=== PATIENT | male | born 1945 | race Caucasian/White ===

== ENCOUNTER 2022-04-14 05:45 | Day surgery (SDC) | payer BC ==
[~2022-04-14] VITALS: Ht 175.3 cm; Wt 79.9 kg
[2022-04-14] MEDS ORDERED: CEFAZOLIN SOD 1 GM/ ISO 50 ML PREMIX IV ONE (07:00)
[2022-04-14] MEDS ORDERED: ROCURONIUM BROMIDE 10 MG/ML (ZEMURON) IV ONE (07:40)
[2022-04-14] MEDS ORDERED: BUPIVACAINE /PF 0.25% 30 ML VIAL INJ ONE (07:40)
[2022-04-14] MEDS ORDERED: NS IRRIG SOLN 1000 ML IR ONE (07:40)
[2022-04-14] MEDS ORDERED: MIDAZOLAM HCL 5 MG/5 ML VIAL IVP ONE (07:40)
[2022-04-14] MEDS ORDERED: KETOROLAC TROMETHAMINE 30 MG VIAL IVP ONE (07:40)
[2022-04-14] MEDS ORDERED: ONDANSETRON HCL 4 MG/2 ML VIAL IVP ONE (07:40)
[2022-04-14] MEDS ORDERED: NS 100 ML BAG IV ONE (07:40)
[2022-04-14] MEDS ORDERED: PROPOFOL 200MG/ 20ML VIAL (DIPRIVAN) IV ONE (07:40)
[2022-04-14] MEDS ORDERED: DESFLURANE 15 MIN GAS INH ONE (07:40)
[2022-04-14] MEDS ORDERED: DEXAMETHASONE SOD PHOSPHATE 4 MG/ML VIAL IVP ONE (07:40)
[2022-04-14] MEDS ORDERED: fentaNYL CITRATE/PF 100 MCG/2 ML AMP IVP ONE (07:40)
[2022-04-14] MEDS ORDERED: LR 1,000 ML IV.SOLN IV ONE (07:40)
[2022-04-14] MEDS ORDERED: LIDOCAINE 2%, 20 ML MDV INJ ONE (07:40)
[2022-04-14] MEDS ORDERED: SUGAMMADEX SODIUM 200 MG/2 ML VIAL IV ONE (07:40)
[2022-04-14] MEDS ORDERED: CEFAZOLIN 2 GM IVPB PREMIX 50 ML IV ONE (07:40)
[2022-04-14] MEDS ORDERED: CEFAZOLIN 1 GM IVPB PREMIX 50 ML IV ONE (07:41)
[2022-04-14] MEDS ORDERED: BUPIVACAINE LIPOSOME/PF 266 MG/20 ML VIAL INFIL ONE (07:45)
[2022-04-14] MEDS ORDERED: MEPERIDINE HCL/PF 25 MG/ML DISP.SYRIN IVP PRN (08:30)
[2022-04-14] MEDS ORDERED: LR 1,000 ML IV SCH (08:30)
[2022-04-14] MEDS ORDERED: METOCLOPRAMIDE HCL 10 MG/2 ML VIAL IVP PRN (08:30)
[2022-04-14] MEDS ORDERED: HYDROmorphone 1 MG/ML INJ. CARTRIDGE IVP PRN ×2 (08:30→09:30)
[2022-04-14] MEDS ORDERED: ACETAMINOPHEN I.V. 1000 MG 100 ML IV ONE (08:36)
[2022-04-14] MEDS ORDERED: HYDROcodone/ACETAMIN 5-325 MG TAB (NORCO/ VICODIN) PO PRN ×2 (09:30)
[2022-04-14] MEDS ORDERED: ACETAMINOPHEN 325 MG TABLET PO PRN ×3 (09:30→12:30)
[2022-04-14] MEDS ORDERED: D5/0.45 NS 1,000 ML IV SCH (09:30)
[2022-04-14] MEDS: hydrALAZINE HCL 20 MG/ML VIAL IVP PRN ×2 (09:48→10:35)
[2022-04-14] MEDS ORDERED: LABETALOL HCL 20 MG/4 ML CARTRIDGE IVP ONE ×2 (09:49→10:23)
[2022-04-14] MEDS ORDERED: hydrALAZINE HCL 20 MG/ML VIAL ONE (09:49)
[2022-04-14] MEDS: LABETALOL 100 MG/ 20ML VIAL IVP PRN ×2 (09:53→10:04)
[2022-04-14] MEDS: HYDROmorphone 1 MG/ML INJ. CARTRIDGE IVP PRN ×5 (09:55→10:49)
[2022-04-14] MEDS ORDERED: HYDROmorphone 1 MG/ML INJ. CARTRIDGE ONE ×2 (09:58→10:22)
[2022-04-14 11:30] VITALS: BP_SYST 160
[2022-04-14] MEDS ORDERED: DICY10SO PO (11:43)
[2022-04-14] MEDS ORDERED: GABA300S PO (11:43)
[2022-04-14 12:00] VITALS: BP_SYST 153
--- NOTE | 2022-04-14 12:00 | NUR ---
OUTBOUND SALES ADVISOR FAISAL Zimmerman responded to a generated Suicide Risk and Homeless referral for patient. FAISAL Zimmerman reviewed notes and assessments, and the following was located in the Postop Assessment; - Wishes to be - NO - Suicidal Thoughts- NO - Refer to Pin Drafting Machine Tender for Suicide Risk- YES - Does patient have fixed nighttime residence- NO FAISAL Zimmerman consulted with assigned SASCHA [place] to obtain clarifying information on SI and homelessness. According to RN, this was a mistake on assessment and there are no concerns at this time. FASIAL will continue to be available as needed. Addendum: 04/14/22 at 1341 by Elsie REID FAISAL Zimmerman provided update to Dietary that patient is not suicidal.
[2022-04-14] MEDS ORDERED: DOCUSATE SODIUM 100 MG CAPSULE PO PRN (12:15)
[2022-04-14] MEDS ORDERED: ONDANSETRON HCL 4 MG/2 ML VIAL IVP PRN (12:15)
[2022-04-14] MEDS ORDERED: MORPHINE 2 MG/ML INJ. SYRINGE IVP PRN ×3 (12:15→13:45)
[2022-04-14] MEDS ORDERED: MUPIROCIN 2% TOPICAL OINTMENT 22 GM NS PRN (12:15)
[2022-04-14] MEDS ORDERED: ZOLPIDEM TARTRATE 5 MG TABLET PO PRN (12:15)
[2022-04-14] MEDS ORDERED: MAGNESIUM SULFATE 50 ML IV PRN (12:15)
[2022-04-14] MEDS ORDERED: POTASSIUM CHLORIDE 20 MEQ TAB.PRT.SR PO PRN (12:15)
[2022-04-14] MEDS ORDERED: LORazepam 2 MG/ML VIAL IVP PRN (12:15)
[2022-04-14] MEDS: ONDANSETRON HCL 4 MG/2 ML VIAL IVP PRN ×3 (12:40→23:58)
--- NOTE | 2022-04-14 12:45 | NUR ---
CONSULTATION PAGED/CALLED Reason for Consultation: []medical management Person Who was Notified: []Anika Consulting Physician: [] Dr. Spann Install Technician Specialty: [] Ordering Physician: []Dr. Wills
[2022-04-14] MEDS: HYDROmorphone 1 MG/ML INJ. CARTRIDGE IV PRN ×3 (15:16→23:58)
[2022-04-14 16:00] VITALS: BP_SYST 171
[2022-04-14] MEDS: CEFAZOLIN 1 GM IVPB PREMIX 50 ML IV SCH (16:36)
[2022-04-14 20:13] VITALS: BP_SYST 159
--- NOTE | 2022-04-14 20:15 | NUR ---
SBAR was received from day shift nurse. Pt c/o severe abdominal pain and nausea. Medicated Dilaudid 1 mg 20:11 pm.
[2022-04-14] MEDS: FAMOTIDINE PF 20 MG/2 ML VIAL IVP SCH (20:54)
[2022-04-14 23:55] VITALS: BP_SYST 154
--- NOTE | 2022-04-15 | NUR ---
Given Dilaudid 1 mg every 3 hr and Zofran 4 mg ivp every 4 hr prn for pain. Abdominal dressing intact. Kept abdominal binder and SCD. Used urinal with minimal assist. No diet order-kept NPO
[2022-04-15] MEDS: CEFAZOLIN 1 GM IVPB PREMIX 50 ML IV SCH (00:08)
[2022-04-15] MEDS: HYDROmorphone 1 MG/ML INJ. CARTRIDGE IV PRN ×3 (02:59→10:45)
[2022-04-15 06:29] VITALS: BP_SYST 142
--- NOTE | 2022-04-15 06:35 | NUR ---
IV was pulled out. Inserted new angio cath # 20g on Left arm.
--- NOTE | 2022-04-15 07:30 | NUR ---
receive the pt s/p hernia repair . no sign and symptoms of pain . no complain of respiratory distress . will continue to monitor
--- NOTE | 2022-04-15 07:36 | NUR ---
SBAR WAS GIVEN TO DAY SHIFT NURSE.
[2022-04-15 08:00] VITALS: BP_SYST 147
[2022-04-15] MEDS ORDERED: ENOXAPARIN SODIUM 30 MG/0.3 ML SYRINGE SUBCUT SCH (09:00)
[2022-04-15] MEDS: ONDANSETRON HCL 4 MG/2 ML VIAL IVP PRN ×2 (09:33→13:29)
[2022-04-15] MEDS: FAMOTIDINE PF 20 MG/2 ML VIAL IVP SCH (09:33)
--- NOTE | 2022-04-15 11:34 | NUR ---
patient complain of nausea and vomiting . ondasetron was given
--- NOTE | 2022-04-15 12:15 | NUR ---
patient complain of abdominal pain . pain medication was given
--- NOTE | 2022-04-15 14:30 | NUR ---
discharge order was done . papers work was started .
[2022-04-15 15:07] VITALS: BP_SYST 143
--- NOTE | 2022-04-15 16:37 | NUR ---
bulk picker by the brother . discharge teaching was done remove id band and iv . patient was brought to the lobby in a stable condition
[2022-04-15 18:37] VITALS: BP_SYST 143
== END 2022-04-15 16:37 | disposition home or self-care (01) ==
LOC: SMU 05:45 → SDS 05:45 → SMU 16:25 → SDS 04-15 16:37
PROVIDERS: ATTEND Colon & Rectal Surgery
DX: K43.0 Incisional hernia with obstruction, without gangrene (principal); I10 Essential (primary) hypertension; K21.9 Gastro-esophageal reflux disease without esophagitis; G47.33 Obstructive sleep apnea (adult) (pediatric); J44.9 Chronic obstructive pulmonary disease, unspecified; F41.9 Anxiety disorder, unspecified; F32.1 Major depressive disorder, single episode, moderate; Z99.89 Dependence on other enabling machines and devices; E66.9 Obesity, unspecified; Z79.899 Other long term (current) drug therapy; Z20.822 Contact with and (suspected) exposure to COVID-19
CPT/HCPCS: 36415 ×2; 49566; 64488; 49568; 88302; 87426; U0003; J3490 ×3; C9290; J0690 ×3; J1100; J0360; J1885; J2001; J2765; J2250; J2405 ×2; J2704; J3010; J1170 ×2; J2270; J7120; C1781; J0131; J1650; 88300

== ENCOUNTER 2022-07-09 09:36 | Outpatient (CLI) | payer BC, MEDICAID ==
[~2022-07-09 09:36] MED LIST: DICY10SO PO; GABA300S PO
== END 2022-07-09 18:24 | disposition home or self-care (01) ==
LOC: SNM 09:36
PROVIDERS: ATTEND Colon & Rectal Surgery
DX: K82.8 Other specified diseases of gallbladder (principal); R10.9 Unspecified abdominal pain
CPT/HCPCS: 78227; A9537

== ENCOUNTER 2022-08-18 05:20 | Day surgery (SDC) | payer BC, MEDICAID ==
[~2022-08-18] VITALS: Ht 175.3 cm; Wt 81.2 kg
[2022-08-18] MEDS ORDERED: CEFAZOLIN SOD 1 GM in D5W 50 ML IV ONE (07:00)
[2022-08-18] MEDS ORDERED: DESFLURANE 15 MIN GAS INH ONE (07:31)
[2022-08-18] MEDS ORDERED: ROCURONIUM BROMIDE 10 MG/ML (ZEMURON) ONE (07:31)
[2022-08-18] MEDS ORDERED: HYDROmorphone 2 MG/ML VIAL ONE (07:31)
[2022-08-18] MEDS ORDERED: PROPOFOL 200MG/ 20ML VIAL (DIPRIVAN) IV ONE (07:31)
[2022-08-18] MEDS ORDERED: fentaNYL CITRATE/PF 100 MCG/2 ML AMP ONE (07:31)
[2022-08-18] MEDS ORDERED: LABETALOL 100 MG/ 20ML VIAL ONE (07:31)
[2022-08-18] MEDS ORDERED: NS 1000 ML IV.SOLN IV ONE (07:31)
[2022-08-18] MEDS ORDERED: ceFAZolin SODIUM 1 GM VIAL ONE (07:31)
[2022-08-18] MEDS ORDERED: METOCLOPRAMIDE HCL 10 MG/2 ML VIAL ONE (07:31)
[2022-08-18] MEDS ORDERED: ONDANSETRON HCL 4 MG/2 ML VIAL ONE (07:31)
[2022-08-18] MEDS ORDERED: SUGAMMADEX SODIUM 200 MG/2 ML VIAL IV ONE (07:31)
[2022-08-18] MEDS ORDERED: ACETAMINOPHEN I.V. 1000 MG /100 ML IVPB PREMIX IV ONE (07:31)
[2022-08-18] MEDS ORDERED: NS IRRIG SOLN 1000 ML IR ONE (07:31)
[2022-08-18] MEDS ORDERED: DEXAMETHASONE SOD PHOSPHATE 4 MG/ML VIAL ONE (07:31)
[2022-08-18] MEDS ORDERED: GLYCOPYRROLATE 0.2 MG/ML VIAL ONE (07:31)
[2022-08-18] MEDS ORDERED: IOHEXOL 300 mgI/mL, 50 mL INFUS..BTL IV ONE (07:31)
[2022-08-18] MEDS ORDERED: BUPIVACAINE /PF 0.25% 30 ML VIAL INJ ONE (07:31)
[2022-08-18] MEDS ORDERED: hydrALAZINE HCL 20 MG/ML VIAL ONE ×2 (07:31→09:38)
[2022-08-18] MEDS ORDERED: LR 1,000 ML IV.SOLN IV ONE (07:31)
[2022-08-18] MEDS ORDERED: ACETAMINOPHEN I.V. 1000 MG 100 ML IV ONE (07:54)
[2022-08-18] MEDS ORDERED: HYDROmorphone 1 MG/ML INJ. CARTRIDGE IVP PRN (09:00)
[2022-08-18] MEDS ORDERED: ONDANSETRON HCL 4 MG/2 ML VIAL IVP PRN (09:00)
[2022-08-18] MEDS ORDERED: HYDROcodone/ACETAMIN 5-325 MG TAB (NORCO/ VICODIN) PO PRN ×2 (09:00)
[2022-08-18] MEDS ORDERED: HYDROmorphone 2 MG/ML VIAL IVP PRN (09:00)
[2022-08-18] MEDS ORDERED: HYDROmorphone 1 MG/ML INJ. CARTRIDGE ONE ×3 (09:07→12:40)
[2022-08-18] MEDS: HYDROmorphone 1 MG/ML INJ. CARTRIDGE IVP PRN ×5 (09:10→15:29)
[2022-08-18] MEDS ORDERED: hydrALAZINE HCL 20 MG/ML VIAL IVP ONE (09:45)
[2022-08-18] MEDS ORDERED: LISI40TA13 PO (11:15)
[2022-08-18] MEDS ORDERED: HYDR-3917 PO (11:15)
[2022-08-18 14:30] VITALS: BP_SYST 151
[2022-08-18] MEDS: D5/0.45 NS 1,000 ML IV SCH ×2 (16:05→16:06)
[2022-08-18 16:10] VITALS: BP_SYST 145
[2022-08-18 20:00] VITALS: BP_SYST 146
[2022-08-18] MEDS: ONDANSETRON HCL 4 MG/2 ML VIAL IVP PRN (20:36)
[2022-08-18] MEDS: MORPHINE 4 MG INJ. 4 MG/ML VIAL IVP PRN (20:58)
[2022-08-19] VITALS: BP_SYST 144
[2022-08-19] MEDS: MORPHINE 4 MG INJ. 4 MG/ML VIAL IVP PRN (03:14)
[2022-08-19] MEDS: D5/0.45 NS 1,000 ML IV SCH ×2 (04:56→17:25)
[2022-08-19] MEDS: ONDANSETRON HCL 4 MG/2 ML VIAL IVP PRN (09:33)
[2022-08-19 09:46] LABS: BASOPHILS % (AUTO) 0.1 % (0.0-2.0); HEMATOCRIT 33.8 % (36-54); HEMOGLOBIN 11.9 g/dL (14.0-18.0); LYMPHOCYTES # (AUTO) 0.3 K/uL (1.0-5.5); LYMPHOCYTES % (AUTO) 2.8 % (20.5-51.5); MEAN CORPUSCULAR HEMOGLOBIN 30 pg (27-31); MEAN CORPUSCULAR HGB CONC 35 % (32-36); MEAN CORPUSCULAR VOLUME 84 fL (79.0-98.0); MONOCYTES # (AUTO) 0.5 K/uL (0.0-1.0); MONOCYTES % (AUTO) 4.4 % (1.7-9.3); NEUTROPHILS # (AUTO) 10.8 K/uL (1.8-7.7); NEUTROPHILS % (AUTO) 92.7 % (40.0-70.0); PLATELET COUNT (AUTO) 175 K/uL (130-430); RED BLOOD CELL COUNT(AUTO) 4.01 MIL/uL (4.2-6.2); RED CELL DISTRIBUTION WIDTH 13.9 % (9.0-15.0); WHITE BLOOD COUNT (AUTO) 11.6 K/uL (4.8-10.8)
[2022-08-19 10:01] LABS: CALCIUM 8.6 mg/dL (8.4-11.0); CHLORIDE 100 mmol/L (98-107); CREATININE 1.02 mg/dL (0.55-1.30); GLUCOSE 142 mg/dL (70-99); UREA NITROGEN, BLOOD 18 mg/dL (8-21)
[2022-08-19 10:13] LABS: ALANINE AMINOTRANSFERASE 42 U/L (12-78); ALBUMIN 3.1 g/dL (3.4-4.8); ANION GAP 10 (5-15); ASPARTATE AMINOTRANSFERASE 39 U/L (10-37); TOTAL BILIRUBIN 0.8 mg/dL (0.0-1.0)
[2022-08-19] MEDS ORDERED: KCL 40 mEq in 100 mL (PREMIX) 100 ML IV ONE (11:30)
[2022-08-19 12:33] VITALS: BP_SYST 123
[2022-08-19] MEDS: POTASSIUM CHLORIDE 20 mEq in 100 mL (PREMIX) 100 ML x 2 doses IV SCH ×2 (12:48→18:23)
[2022-08-19 16:35] VITALS: BP_SYST 140
[2022-08-19 20:00] VITALS: BP_SYST 142
[2022-08-20] VITALS: BP_SYST 138
[2022-08-20] MEDS: D5/0.45 NS 1,000 ML IV SCH (00:56)
[2022-08-20 06:10] LABS: BASOPHILS % (AUTO) 0.1 % (0.0-2.0); HEMATOCRIT 33.4 % (36-54); HEMOGLOBIN 11.8 g/dL (14.0-18.0); LYMPHOCYTES # (AUTO) 0.4 K/uL (1.0-5.5); LYMPHOCYTES % (AUTO) 5.1 % (20.5-51.5); MEAN CORPUSCULAR HEMOGLOBIN 30 pg (27-31); MEAN CORPUSCULAR HGB CONC 35 % (32-36); MEAN CORPUSCULAR VOLUME 86 fL (79.0-98.0); MONOCYTES # (AUTO) 0.5 K/uL (0.0-1.0); MONOCYTES % (AUTO) 6.4 % (1.7-9.3); NEUTROPHILS # (AUTO) 7.1 K/uL (1.8-7.7); NEUTROPHILS % (AUTO) 88.4 % (40.0-70.0); PLATELET COUNT (AUTO) 163 K/uL (130-430); RED BLOOD CELL COUNT(AUTO) 3.89 MIL/uL (4.2-6.2); WHITE BLOOD COUNT (AUTO) 8.1 K/uL (4.8-10.8)
[2022-08-20 06:40] LABS: ALANINE AMINOTRANSFERASE 39 U/L (12-78); ANION GAP 9 (5-15); ASPARTATE AMINOTRANSFERASE 34 U/L (10-37); CALCIUM 8.5 mg/dL (8.4-11.0); CHLORIDE 101 mmol/L (98-107); CREATININE 0.89 mg/dL (0.55-1.30); GLUCOSE 131 mg/dL (70-99); TOTAL BILIRUBIN 0.9 mg/dL (0.0-1.0); UREA NITROGEN, BLOOD 15 mg/dL (8-21)
[2022-08-20] MEDS: ONDANSETRON HCL 4 MG/2 ML VIAL IVP PRN (10:35)
[2022-08-20 12:55] VITALS: BP_SYST 142
== END 2022-08-20 15:30 | disposition home or self-care (01) ==
LOC: SDS 05:20 → SMU 05:20 → SDS 08-20 15:30
PROVIDERS: ATTEND Colon & Rectal Surgery
DX: K82.8 Other specified diseases of gallbladder (principal); K81.1 Chronic cholecystitis; G47.33 Obstructive sleep apnea (adult) (pediatric); I10 Essential (primary) hypertension; K21.9 Gastro-esophageal reflux disease without esophagitis; F41.9 Anxiety disorder, unspecified; J44.9 Chronic obstructive pulmonary disease, unspecified; F32.A Depression, unspecified; Z99.89 Dependence on other enabling machines and devices; Z79.899 Other long term (current) drug therapy; Z20.822 Contact with and (suspected) exposure to COVID-19
CPT/HCPCS: 36415 ×2; 47563; 84132; 85025; 74300; 88304; 87426; 80053; U0003; J3490 ×4; J0690; J1100; J0360; J2765; J2405 ×3; J2704; J3010; J1170 ×2; J2270 ×2; Q9967; J7060; J7120; J7030; C1727; J0131; J3480; 76000